=== PATIENT | male | born 1975 | race Two or more races ===

== ENCOUNTER 2020-07-03 16:12 | Emergency (ER) | payer OTHER ==
[~2020-07-03] VITALS: Ht 177.8 cm; Wt 90.9 kg
[2020-07-03 17:25] VITALS: BP 194/101
[2020-07-03] MEDS ORDERED: LIDOCAINE 2% Multi-Dose 20 ML VIAL. IJ ONE (18:00)
[2020-07-03] MEDS ORDERED: LIDOCAINE 1% Multi-Dose 20 ML VIAL. ONE (18:14)
[2020-07-03] MEDS ORDERED: BACITRACIN TOPICAL OINT PACKET. TP ONE (18:15)
[2020-07-03] MEDS ORDERED: LIDOCAINE 2% 100 MG/5 ML SYRINGE. ONE (18:16)
[2020-07-03] MEDS ORDERED: BACI28.34 TP (19:04)
--- NOTE | 2020-07-03 19:05 | PHYS DOC ---
General Adult EDM: Chief Complaint: LACERATION/AVULSION HPI: HPI: Patient is a 45 year old male presents emergency department complaining of lacerating his left index finger just prior to arrival. States he was using a almond grinder with a sandpaper wheel attached when he lost control of it and it drug across the top of his left index finger. Patient states that his tetanus shot is up-to-date. He states he washed with soap and water prior to arrival. Patient states he is here for suture repair of his left index finger. Patient denies any other physical complaints, physical injuries, or physical concerns. Review of Systems: Review of Systems: 14 body systems of review of systems have been reviewed. See HPI for pertinent positives and negative responses, otherwise all other systems are negative, nonpertinent or noncontributory. Heart Score: Risk Factors: Risk Factors: DM, Current or recent (<one month) smoker, HTN, HLP, family history of CAD, obesity. Risk Scores: Score 0 - 3: 2.5% MACE over next 6 weeks - Discharge Home Score 4 - 6: 20.3% MACE over next 6 weeks - Admit for Clinical Observation Score 7 - 10: 72.7% MACE over next 6 weeks - Early Invasive Strategies Current Medications: Current Medications Medications (Trade) Dose Ordered Sig/Garrett Start Time Stop Time Status Last Admin Dose Admin Bacitracin (Bacitracin Zinc Oint Pkt) 1 pkt 1X ONCE 07/03/20 18:15 07/03/20 18:22 DC Lidocaine HCl (Lidocaine 1% 20ml Vial) 20 ml STK-MED ONCE 07/03/20 18:14 07/03/20 18:14 DC Lidocaine HCl (Lidocaine 2% 20ml Vial) 20 ml 1X ONCE 07/03/20 18:00 07/03/20 18:22 DC 07/03/20 18:05 20 ML Lidocaine HCl (Lidocaine HCl 2% Abboject) 100 mg STK-MED ONCE 07/03/20 18:16 07/03/20 18:16 DC Allergies: Allergies: Allergies Coded Allergies Type Severity Reaction Last Updated Verified No Known Drug Allergies 07/03/20 No Physical Exam: PE: Constitutional: Well developed, well nourished, no acute distress, non-toxic appearance. [] HENT: Normocephalic, atraumatic, bilateral external ears normal, oropharynx moist, no oral exudates, nose normal. [] Eyes: PERRLA, EOMI, conjunctiva normal, no discharge. [] Neck: Normal range of motion, no tenderness, supple, no stridor. [] Cardiovascular:Heart rate regular rhythm, no murmur [] Lungs & Thorax: Bilateral breath sounds clear to auscultation [] Abdomen: Bowel sounds normal, soft, no tenderness, no masses, no pulsatile masses. [] Skin: Warm, dry, no erythema, no rash. Avulsion abrasion across entire length of dorsal aspect left index finger with full-thickness laceration along MIP joint measuring 1/2 cm. Bleeding controlled. No loss of sensation, distal cap refill less than 2 seconds, full AROM/PROM, tended not appreciated through laceration window. Back: No tenderness, no CVA tenderness. [] Extremities: No tenderness, no cyanosis, no clubbing, ROM intact, no edema. [] Neurologic: Alert and oriented X 3, normal motor function, normal sensory function, no focal deficits noted. [] Psychologic: Affect normal, judgement normal, mood normal. [] EKG: EKG: [] Radiology/Procedures: Radiology/Procedures: [] Course & Med Decision Making: Course & Med Decision Making Pertinent Labs and Imaging studies reviewed. (See chart for details) 45-year-old male, vital signs reviewed, was seen in the emergency department today for an avulsion laceration to the left index finger. See suture repair note. Patient's tetanus immunizations were up-to-date. The finger was dressed and splinted with aluminum finger splint prior to discharge. Gave verbal understanding of sutures out in 10 days, return to ER precautions and concerns, wound care, suture care, had no further question concerns discharged home. Impression: #1 skin avulsion of left index finger #2 laceration of left index finger Dragon Disclaimer: Amrit Disclaimer: This electronic medical record was generated, in whole or in part, using a voice recognition dictation system. Departure Departure Impression: Primary Impression: Laceration of left index finger Qualified Codes: S61.211A - Laceration without foreign body of left index finger without damage to nail, initial encounter Additional Impression: Avulsion of skin of finger Qualified Codes: S61.209A - Unspecified open wound of unspecified finger without damage to nail, initial encounter Disposition: 01 DC HOME SELF CARE/HOMELESS Condition: GOOD Referrals: NO PCP (PCP) Patient Instructions: Suture Removal-Brief Additional Instructions: Use [id number] antibiotic ointment to your index finger, keep your splint on until sutures are removed in 10 days. Please return the emergency department for worsening symptoms site or signs and symptoms of infection. Keep the suture site and avulsion site clean and dry, wash daily with soap and water, use antibiotic ointment. Scripts Bacitracin/Polymyxin B Sulfate (POLYSPORIN TOPICAL OINT) 28.3 Gm Oint...g. 1 AVEL TP TID for WOUND CARE, #1 TUBE DIRECTED BY PHYSICIAN Prov: EUGENE BAILON APRN 07/03/20 Laceration Repair Lac Repair Indication: [] Laceration left index finger dorsal aspect MIP joint area Procedure: The patient was placed in the appropriate position and anesthesia around the laceration was achieved with digital block using 5 cc 2% lidocaine without epinephrine.. The area was then 240 cc high-pressure saline, the laceration was explored and no foreign bodies found. The extensor tendons visualized were not damaged. The laceration was closed using 3 interrupted sutures with 5-0 nylon. The suture site and left index finger was dressed with bacitracin, bandage, and splinted by ED nursing staff. Total repaired wound length: [TOTAL REPAIR LENGTH]. Other Items: [OTHER ITEMS] The patient tolerated the procedure [TOLERATED]. Patient tolerated procedure well Complications: [COMPLICATIONS]. No complications, suture repaired finger remained neurovascular intact. EUGENE BAILON APRN Jul 03, 2020 19:05
== END 2020-07-03 19:20 | disposition home or self-care (01) ==
LOC: ER 16:12
DX: S61.211A Laceration without foreign body of left index finger without damage to nail, initial encounter (principal); W29.0XXA Contact with powered kitchen appliance, initial encounter; Y93.G9 Activity, other involving cooking and grilling; Y92.89 Other specified places as the place of occurrence of the external cause; Y99.8 Other external cause status
CPT/HCPCS: 12001; 99282